=== PATIENT | female | born 1940 | race Caucasian/White ===

== ENCOUNTER 2016-04-27 10:45 | Outpatient (CLI) | payer OTHER ==
--- NOTE | 2016-04-27 12:13 | DIAGNOSTIC IMAGING REPORT ---
PROCEDURE: MG BILATERAL SCREENING W/CAD INDICATION: Screening. Family history breast carcinoma (aunt, sister, daughter). TECHNIQUE: Bilateral CC and MLO digital views. COMPARISON: Compared to [facility] in [facility] on 08/11/2012, 07/10/2011, and 04/10/2010. FINDINGS: Computer-aided detection applied. Mildly dense. There is a 7 mm asymmetry in the upper central right breast (middle third) which is only seen on the MLO view. There is also a 6 mm nodular density in the lateral retroareolar region of the right breast. IMPRESSION: 1. There is a 7 mm asymmetry in the upper central right breast, and a 6 mm nodular density in the retroareolar right breast. While these changes may represent normal asymmetric tissue, underlying mass, cyst, or architectural distortion should be considered. Further mammographic views (true lateral view, CC and MLO spot compression views) are recommended. In addition, right breast ultrasound is recommended. RESULT CODE: 0- Incomplete; needs additional evaluation. A. A negative report should not delay biopsy if a dominant or clinically suspicious mass is present. 10-15% of cancers are not identified by x-ray. B. A negative report may reinforce clinical impression. C. Adenosis and dense breasts may obscure an underlying neoplasm. D. False positive reports average 6-10%. E.. A yearly screening mammogram is recommended. A reminder letter will be scheduled.
--- NOTE | 2016-04-27 12:42 | DIAGNOSTIC IMAGING REPORT ---
PROCEDURE: DEXA BONE DENSITY STUDY CLINICAL INDICATION: SCREENING COMPARISON: None. FINDINGS: LUMBAR SPINE: Bone mineral density 0.705 g/cm2, T score -3.1 osteoporosis LEFT HIP: Bone mineral density 0.863 g/cm2, T score -0.6 normal LEFT FEMORAL NECK: Bone mineral density 0.652 g/cm2, T score -1.8 osteopenia FRACTURE RISK CALCULATION ( when applicable): 10-year fracture risk of a major osteoporotic fracture and of a hip fracture not reported because some T-score at or below -2.5 (T score greater or equal to -1.0 to: NORMAL) (T score from -1.1 to -2.4: OSTEOPENIA) (T score ess than or equal to -2.5: OSTEOPOROSIS) IMPRESSION: 1. Lumbar spine osteoporosis, femoral neck osteopenia.
== END 2016-04-27 23:00 ==
LOC: MAM SRH 10:45
DX: Z12.31 Encounter for screening mammogram for malignant neoplasm of breast (principal); Z80.3 Family history of malignant neoplasm of breast; M81.8 Other osteoporosis without current pathological fracture; M85.88 Other specified disorders of bone density and structure, other site

== ENCOUNTER 2016-05-13 10:47 | Outpatient (CLI) | payer OTHER ==
--- NOTE | 2016-05-13 13:22 | DIAGNOSTIC IMAGING REPORT ---
PROCEDURE: MG UNILATERAL DIAG-RT W/CAD INDICATION: Follow-up asymmetric densities in right breast. TECHNIQUE: True lateral digital view of the right breast. In addition, spot compression CC and MLO views were obtained of the retroareolar and upper outer right breast (region of clinical concern). Finally, high-resolution by breast ultrasound was performed (18 mHz). (Grinder Set Up Operator External J, SRT) COMPARISON: Comparison is made to screening mammogram study on 04/27/2016. FINDINGS: MAMMOGRAM: Computer-aided detection applied. Mildly dense parenchymal pattern. There is no evidence of mass or architectural distortion. BREAST ULTRASOUND: Normal parenchyma with minimal retroareolar ductal ectasia. IMPRESSION: 1. Negative mammogram and negative right breast ultrasound. No evidence of mass or architectural distortion. 2. Findings discussed with the patient. RESULT CODE: 1- Negative. A. A negative report should not delay biopsy if a dominant or clinically suspicious mass is present. 10-15% of cancers are not identified by x-ray. B. A negative report may reinforce clinical impression. C. Adenosis and dense breasts may obscure an underlying neoplasm. D. False positive reports average 6-10%. E.. A yearly screening mammogram is recommended. A reminder letter will be scheduled.
== END 2016-05-13 23:00 ==
LOC: MAM SRH 10:47
DX: R92.2 Inconclusive mammogram (principal)